=== PATIENT | male | born 1960 | race Caucasian/White ===

== ENCOUNTER 2020-07-03 15:14 | Emergency (ER) | payer SELFPAY ==
[~2020-07-03] VITALS: Ht 193 cm; Wt 100.7 kg
[2020-07-03 15:31] VITALS: Ht 193 cm; Wt 100.7 kg
[2020-07-03 17:21] LABS: BASOPHIL % 1.7 % (0-2); PLATELET COUNT 216 x10^3mcL (130-400); RED CELL DISTRIBUTION WIDTH 13.6 % (11.5-14.5)
[2020-07-03 17:34] LABS: CALCIUM 8.6 mg/dL (8.5-10.1); CARBON DIOXIDE 25.4 mmol/L (21-32); CHLORIDE SERUM 101 mmol/L (98-107); GFR1 > 60 mL/min; GLUCOSE SERUM 78 mg/dL (74-106); POTASSIUM SERUM 4.1 mmol/L (3.5-5.1); SODIUM SERUM 135 mmol/L (136-145)
[2020-07-03 17:38] LABS: ALBUMIN 3.9 g/dL (3.4-5.0); ALKALINE PHOSPHATASE 67 U/L (46-116); ALT/SGPT 25 U/L (16-63); AST/SGOT 19 U/L (15-37); BILIRUBIN TOTAL 0.8 mg/dL (0.20-1.00); TOTAL PROTEIN, SERUM 7.1 g/dL (6.4-8.2)
[2020-07-03 18:23] VITALS: BP 111/72
== END 2020-07-03 18:23 | disposition home or self-care (01) ==
LOC: ED 15:14
PROVIDERS: Emergency Medicine
DX: I10 Essential (primary) hypertension (principal); M10.071 Idiopathic gout, right ankle and foot
CPT/HCPCS: 83880; Q0092